=== PATIENT | male | born 1955 | race Caucasian/White ===

== ENCOUNTER 2024-05-25 09:28 | Day surgery (SDC) | payer BC ==
[2024-05-21 10:23] LABS: APTT 27 SECONDS (22-32); PROTHROMBIN TIME 10.6 SECONDS (9.0-12.0)
[2024-05-21 10:24] LABS: BASOPHILS # (AUTO) 0.1 X10'3 (0-0.2); BASOPHILS % (AUTO) 0.9 % (0-1); EOSINOPHILS # (AUTO) 0.4 X10'3 (0-0.9); EOSINOPHILS % (AUTO) 4.6 % (0-6); HEMATOCRIT 47.4 % (42.0-52.0); LYMPHOCYTES # (AUTO) 1.7 X10'3 (1.1-4.8); LYMPHOCYTES % (AUTO) 20.8 % (21-51); MEAN CORPUSCULAR HEMOGLOBIN 31.9 PG (27.0-31.0); MEAN CORPUSCULAR HGB CONC 33.7 g/dL (33.0-36.5); MEAN CORPUSCULAR VOLUME 94.6 FL (78-98); MEAN PLATELET VOLUME 8.1 FL (7.4-10.4); MONOCYTES # (AUTO) 0.6 X10'3 (0-0.9); MONOCYTES % (AUTO) 6.8 % (2-12); NEUTROPHILS # (AUTO) 5.6 X10'3 (1.8-7.7); NEUTROPHILS % (AUTO) 66.9 % (42-75); PLATELET COUNT 174 X10'3 (140-440); RED BLOOD COUNT 5.02 X10'6 (4.70-6.10); RED CELL DISTRIBUTION WIDTH 14.2 % (11.5-14.5); WHITE BLOOD COUNT 8.4 X10'3 (4.5-11.0)
[2024-05-21 10:37] LABS: ALBUMIN 3.9 G/DL (3.4-5.0); ANION GAP 6 (8-16); BLOOD UREA NITROGEN 21 MG/DL (7-18); BUN/CREATININE RATIO 20.8 (10.0-20.0); CHLORIDE 105 MMOL/L (99-107); CHOL/HDL RATIO 4.1 (0.00-4.99); CHOLESTEROL 175 MG/DL (0-200); CREATININE 1.01 MG/DL (0.60-1.10); GLUCOSE 101 MG/DL (70-104); HDL CHOLESTEROL 43 MG/DL (35-60); LDL CHOLESTEROL 69 MG/DL (50-100); POTASSIUM 4.7 MMOL/L (3.5-5.1); SODIUM 140 MMOL/L (135-145); TOTAL CARBON DIOXIDE 29.1 MMOL/L (24-32); TRIGLYCERIDES 141 MG/DL (20-135); eGFR 73 ML/MIN
[~2024-05-25] VITALS: Ht 185.4 cm; Wt 86.1 kg
[2024-05-25] VITALS (9 sets, daily range): BP systolic 113–127; BP diastolic 68–78; PULSE 67–72; RESP 16–19; TEMP 97.9; O2SAT 94–97
[2024-05-25] MEDS: LORazepam 0.5 MG tablet PO PRN (10:31)
[2024-05-25] MEDS: diphenhydrAMINE 25mg capsule PO PRN (10:31)
[2024-05-25] MEDS: normal saline 1,000 ML IV SCH (10:32)
[2024-05-25] MEDS ORDERED: OMEP20TA23 PO (10:39)
[2024-05-25] MEDS ORDERED: SPIR25TA5 PO (10:39)
[2024-05-25] MEDS ORDERED: LACT1CAP65 PO (10:39)
[2024-05-25] MEDS ORDERED: MULT-1085 PO (10:39)
[2024-05-25] MEDS ORDERED: EMPA10TA PO (10:39)
[2024-05-25] MEDS ORDERED: TADA20TA43 PO (10:39)
[2024-05-25] MEDS ORDERED: SACU1TAB7 PO (10:39)
[2024-05-25] MEDS ORDERED: CARV6.2553 PO (10:39)
[2024-05-25] MEDS ORDERED: verapamil 2.5 mg/ml inj IV ONE (11:34)
[2024-05-25] MEDS ORDERED: LIDOcaine 1% (10mg/ml) 2ml vial ONE (11:34)
[2024-05-25] MEDS ORDERED: heparin 1,000unit/ml 10ml vial 10 ML ONE (11:34)
[2024-05-25] MEDS ORDERED: fentaNYL/PF 50MCG/1 ML 2ML syringe ONE (11:34)
[2024-05-25] MEDS ORDERED: midazolam 1 mg/ML 2ml injection ONE ×2 (11:34→12:22)
[2024-05-25] MEDS ORDERED: iohexol 350MG/ML 100ml bottle IV ONE (11:34)
[2024-05-25] MEDS ORDERED: nitroGLYCERIN 500mcg/5mL D5W 5 ML IV ONE (11:36)
[2024-05-25] MEDS ORDERED: HYDROcodone/acetaminophen 5mg/325mg tablet PO PRN (13:10)
[2024-05-25] MEDS ORDERED: HYDROcodone/acetaminophen 10/325mg tab PO PRN (13:10)
== END 2024-05-25 15:05 | disposition home or self-care (01) ==
LOC: SSTAY O 09:28
PROVIDERS: ATTEND Student in an Organized Health Care Education/Training Program
DX: I11.0 Hypertensive heart disease with heart failure (principal); I50.22 Chronic systolic (congestive) heart failure; I44.7 Left bundle-branch block, unspecified; E78.00 Pure hypercholesterolemia, unspecified; I42.9 Cardiomyopathy, unspecified; Z79.899 Other long term (current) drug therapy
CPT/HCPCS: 36415; 80048; 80061; 85025; 85610; 85730; 93458; 99152; A6258; J1644; J2250; J3010; J3490; J7030; Q0163; Q9967; 93005; 99153; A6402; C1894